=== PATIENT | male | born 1965 | race Caucasian/White ===

== ENCOUNTER 2016-06-24 15:10 | Emergency (ER) | payer MEDICAID | END 2016-06-24 16:29 | disposition home or self-care (01) | LOC: D.ER 15:10 | DX: M25.551 Pain in right hip (principal); F17.200 Nicotine dependence, unspecified, uncomplicated ==

== ENCOUNTER 2016-07-21 11:38 | Emergency (ER) | payer MEDICAID | END 2016-07-21 13:00 | disposition home or self-care (01) | LOC: D.ER 11:38 | DX: M25.552 Pain in left hip (principal); G89.29 Other chronic pain; F17.200 Nicotine dependence, unspecified, uncomplicated ==